=== PATIENT | female | born 1990 | race Two or more races ===

== ENCOUNTER → 2017-07-04 16:47 | Outpatient (CLI) | payer OTHER, SELFPAY ==
[2017-07-07 17:07] LABS: HPV Reflexed? NOT INDICATED
== END ==
PROVIDERS: Visit Provider Obstetrics & Gynecology
DX: Z12.4 Encounter for screening for malignant neoplasm of cervix (principal); Z01.419 Encounter for gynecological examination (general) (routine) without abnormal findings
CPT/HCPCS: 88175; G0145